=== PATIENT | male | born 2000 | race Caucasian/White ===

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

== ENCOUNTER 2023-01-16 19:48 | Emergency (ER) | payer BC ==
[~2023-01-16] VITALS: Ht 167.6 cm; Wt 102.1 kg
[2023-01-16] MEDS ORDERED: ELIQUIS5 M1 PO (21:25)
[2023-01-17] MEDS ORDERED: CYCLOBENZAPRINE10 MG PO (01:44)
== END 2023-01-17 01:53 | disposition home or self-care (01) ==
LOC: ED 19:48
DX: S46.912A Strain of unspecified muscle, fascia and tendon at shoulder and upper arm level, left arm, initial encounter (principal); M54.2 Cervicalgia; M54.9 Dorsalgia, unspecified; J45.909 Unspecified asthma, uncomplicated; Z88.1 Allergy status to other antibiotic agents; X50.1XXA Overexertion from prolonged static or awkward postures, initial encounter; Y93.89 Activity, other specified; Y92.89 Other specified places as the place of occurrence of the external cause; Y99.0 Civilian activity done for income or pay

== ENCOUNTER 2023-01-17 14:28 | Emergency (ER) | payer BC ==
[~2023-01-17 14:28] MED LIST changes: +CYCLOBENZAPRINE10 MG PO; +ELIQUIS5 M1 PO
== END 2023-01-17 14:42 | disposition left against medical advice (07) ==
LOC: ED 14:28
DX: R06.02 Shortness of breath (principal); M79.10 Myalgia, unspecified site; Z88.1 Allergy status to other antibiotic agents; Z53.21 Procedure and treatment not carried out due to patient leaving prior to being seen by health care provider

== ENCOUNTER 2023-12-12 10:11 | Emergency (ER) | payer BC ==
[~2023-12-12] VITALS: Ht 167.6 cm; Wt 102.1 kg
[2023-12-12 10:47] LABS: BASO # 0.1 10*3/uL (0.0-0.1); BASO % 0.6 % (0.0-1.0); EOS # 0.3 10*3/uL (0.0-0.4); EOS % 2.7 % (1.0-4.0); HEMATOCRIT 44.8 % (42.0-52.0); LYMPH # 3.8 10*3/uL (1.3-4.4); LYMPH % 36.5 % (27.0-41.0); MEAN CELL VOLUME 87.5 fl (80.0-94.0); MEAN CORPUSCULAR HGB 29.3 pg (27.0-31.0); MEAN CORPUSCULAR HGB CONC 33.5 g/dl (33.0-37.0); MEAN PLATELET VOLUME 9.2 fl (9.6-12.3); MONO # 0.8 10*3/uL (0.1-1.0); MONO % 7.8 % (3.0-9.0); NEUT # 5.4 10*3/uL (2.3-7.9); NEUT % 52.2 % (47.0-73.0); PLATELET COUNT AUTOMATED 380 10*3/uL (130-400); RED BLOOD COUNT 5.12 10*6/uL (4.50-5.90); RED CELL DISTRI WIDTH 12.3 % (0-14.5); WHITE BLOOD COUNT 10.3 10*3/uL (4.8-10.8)
[2023-12-12 11:06] LABS: ALKALINE PHOSPHATASE 58 U/L (46-116); BUN 12 mg/dl (9-23); CHLORIDE 107 mmol/L (98-107); POTASSIUM 3.5 mmol/L (3.4-5.1); SGPT/ALT 46 U/L (5-49); TOTAL PROTEIN 6.5 gm/dL (6.0-8.0)
[2023-12-12] MEDS ORDERED: NITROGLYCERIN 0.4 MG BOT SL PRN (11:20)
[2023-12-12] MEDS ORDERED: ATORVASTATIN CALCIUM 80 MG TAB PO SCH (11:20)
[2023-12-12] MEDS ORDERED: ASPIRIN, CHEWABLE 81 MG TAB PO ONE (11:20)
[2023-12-12] MEDS ORDERED: HEPARIN SODIUM 250 ML IV SCH ×2 (11:25→11:40)
[2023-12-12] MEDS ORDERED: TICAGRELOR 90 MG TABLET PO ONE (11:25)
[2023-12-12 11:28] LABS: ACT PARTIAL THROMBO TIME 25.1 SECONDS (20.0-32.1)
[2023-12-12 12:12] VITALS: BP 108/69
== END 2023-12-12 12:15 | disposition short-term general hospital (02) ==
LOC: ED 10:11
PROVIDERS: Internal Medicine
DX: I21.3 ST elevation (STEMI) myocardial infarction of unspecified site (principal); Z88.1 Allergy status to other antibiotic agents; Z79.899 Other long term (current) drug therapy; Z86.718 Personal history of other venous thrombosis and embolism

== ENCOUNTER 2024-04-13 15:27 | Emergency (ER) | payer BC ==
[~2024-04-13] VITALS: Ht 167.6 cm; Wt 100.0 kg
[2024-04-13 16:05] LABS: BASO # 0.1 10*3/uL (0.0-0.1); BASO % 0.6 % (0.0-1.0); EOS # 0.2 10*3/uL (0.0-0.4); EOS % 2.7 % (1.0-4.0); HEMATOCRIT 48.8 % (42.0-52.0); MEAN CELL VOLUME 86.4 fl (80.0-94.0); MEAN CORPUSCULAR HGB 28.7 pg (27.0-31.0); MEAN CORPUSCULAR HGB CONC 33.2 g/dl (33.0-37.0); MEAN PLATELET VOLUME 8.7 fl (9.6-12.3); MONO # 0.7 10*3/uL (0.1-1.0); NEUT # 5.2 10*3/uL (2.3-7.9); NEUT % 64.3 % (47.0-73.0); PLATELET COUNT AUTOMATED 433 10*3/uL (130-400); RED BLOOD COUNT 5.65 10*6/uL (4.50-5.90); RED CELL DISTRI WIDTH 12.2 % (0-14.5); WHITE BLOOD COUNT 8.1 10*3/uL (4.8-10.8)
[2024-04-13] MEDS ORDERED: ASPIRIN, CHEWABLE 81 MG TAB PO ONE (16:25)
[2024-04-13 16:29] LABS: BUN 14 mg/dl (9-23); CHLORIDE 105 mmol/L (98-107); POTASSIUM 4.7 mmol/L (3.4-5.1)
[2024-04-13] MEDS ORDERED: SODIUM CHLORIDE 0.9% 1,000 ML IV ONE (16:30)
[2024-04-13] MEDS ORDERED: HEPARIN SODIUM 250 ML IV SCH (16:30)
[2024-04-13] MEDS ORDERED: TICAGRELOR 90 MG TABLET PO ONE (16:30)
[2024-04-13 17:26] VITALS: BP 136/70
== END 2024-04-13 17:35 | disposition short-term general hospital (02) ==
LOC: ED 15:27
PROVIDERS: Physician Assistant Medical
DX: I21.3 ST elevation (STEMI) myocardial infarction of unspecified site (principal); R94.31 Abnormal electrocardiogram [ECG] [EKG]; J45.909 Unspecified asthma, uncomplicated; Z86.718 Personal history of other venous thrombosis and embolism; Z88.1 Allergy status to other antibiotic agents

== ENCOUNTER → 2024-05-24 | Outpatient (CLI) | payer BC ==
[2024-05-24 13:00] LABS: HEMATOCRIT 46.3 % (42.0-52.0); MEAN CELL VOLUME 86.4 fl (80.0-94.0); MEAN CORPUSCULAR HGB 29.5 pg (27.0-31.0); MEAN CORPUSCULAR HGB CONC 34.1 g/dl (33.0-37.0); MEAN PLATELET VOLUME 8.7 fl (9.6-12.3); RED BLOOD COUNT 5.36 10*6/uL (4.50-5.90); RED CELL DISTRI WIDTH 12.2 % (0-14.5); WHITE BLOOD COUNT 6.3 10*3/uL (4.8-10.8)
[2024-05-24 13:12] LABS: ACT PARTIAL THROMBO TIME 30.3 SECONDS (20.0-32.1)
[2024-05-24 13:27] LABS: BUN 12 mg/dl (9-23); CHLORIDE 101 mmol/L (98-107); POTASSIUM 4.2 mmol/L (3.4-5.1)
== END | disposition home or self-care (01) ==
LOC: LAB 12:41
PROVIDERS: ATTEND Nurse Practitioner Family
DX: Z01.812 Encounter for preprocedural laboratory examination (principal); I42.8 Other cardiomyopathies; R07.9 Chest pain, unspecified; R93.89 Abnormal findings on diagnostic imaging of other specified body structures